=== PATIENT | female | born 1945 | race Caucasian/White ===

== ENCOUNTER 2020-06-15 11:11 | Outpatient (CLI) | payer MEDICARE, SELFPAY ==
--- NOTE | 2020-06-15 11:15 | MM_ITS ---
WS: [id number] Exam: [place] [id number] Date/Time of Exam: 06/15/2020 11:19 AM Reason For Exam: SCREENING VIEWS: MLO and CC views both breasts. Comparison made with prior exam of 03/08/2017. Findings: There was no sign of mass, architectural distortion or suspicious calcification in either breast. Sc attered fibroglandular densities MM/[place] [id number] Impression: BI-RADS: 2-Benign FOLLOW-UP: 1 Year Follow-up This mammogram was also analyzed by the Computer Aided Detection System [employer] M[employer] Installer.
== END 2020-06-15 11:12 | disposition home or self-care (01) ==
LOC: RADSHAW 11:13
PROVIDERS: Family Provider Family Medicine; PCP Family Medicine; Visit Provider Family Medicine
DX: Z12.31 Encounter for screening mammogram for malignant neoplasm of breast (principal)
CPT/HCPCS: 77067

== ENCOUNTER 2020-08-12 13:21 | Outpatient (CLI) | payer MEDICARE, SELFPAY ==
--- NOTE | 2020-08-12 13:29 | XR_ITS ---
WS: [id number] DEXA (DUAL ENERGY X-RAY ABSORPTIOMETRY) Bone mineral density was performed using a [employer] machine. HISTORY: POST MENOPAUSAL COMPARISON: 08/04/2018 Lumbar spine BMD (L1-L4): 1.153 g/cm2 T score: -0.2 Z score: 0.3 Total hip BMD: Left: 1.004 g/cm2. T score: 0.0 Z score: 0.8 Right: 1.003 g/cm2. T score: 0.0 Z score: 0.8 10 year probability of a major osteoporotic fracture is 18%. Compared to the prior study from 08/04/2018. Lumbar spine bone mineral density has increased by 3%. Bilateral hips bone mineral density has decreased by 0.6%. XR/XR DEXA axial skeleton* [id number] IMPRESSION: NORMAL BONE MINERAL DENSITY based upon the WHO classification for females. Sign ificant increase in bone mineral density in the lumbar spine since the prior .
== END 2020-08-12 13:22 | disposition home or self-care (01) ==
LOC: RADWPI 13:29
PROVIDERS: PCP Family Medicine; Visit Provider Family Medicine
DX: Z78.0 Asymptomatic menopausal state (principal)
CPT/HCPCS: 77080

== ENCOUNTER 2020-09-05 08:33 | Observation (INO) | payer MEDICARE, SELFPAY ==
[2020-09-05] VITALS (7 sets, daily range): BP systolic 101–124; BP diastolic 50–72; PULSE 75–85; RESP 16–19; TEMP 36.3–37.2; O2SAT 93–98; BMI 40.5
--- NOTE | 2020-09-05 08:56 | XR_ITS ---
WS: [id number] Exam: XR chest 1V portable [id number] Date/Time of Exam: 09/05/2020 8:57 AM Reason For Exam: weakness No priors. The lungs are fully expanded. No consolidating infiltrates or pleural effusion. Normal cardiomediasti nal structures for technique. Regional bony elements are intact. XR/XR chest 1V portable [id number] IMPRESSION: 1. No acute cardiopulmonary process.
--- NOTE | 2020-09-05 08:56 | W.ED.WEAKNES ---
Documented by User: LUIS A Newberry 09/05/20 11:11 HPI - Weakness General: Chief complaint: Weakness Stated complaint: weakness Time Seen by Provider: 09/05/20 08:45 Source: patient Mode of arrival: ambulatory Limitations: no limitations History of Present Illness: HPI Narrative: Patient is a 75-year-old female who presents to ED today with a main complaint of generalized weakness. Patient tells me she received the second COVID vaccine 6 days ago. She states the following day she developed a pruritic rash. She also began noticing low-grade fevers of 99.0. She states she had some nausea and felt a little short of breath. She has had 1-2 episodes of non-bloody emesis and reports her stools are looser than normal. Patient states since that time most of the rash has subsided although she has still noticed it to her bilateral lower extremities. She complains of some mild abdominal pain. She complains of mild intermittent chest pains. She states she does still feel short of breath. Her main complaint is feeling generally weak. PMH significant for HTN and hyperlipidemia. Current meds include Lisinopril, Atenolol, and Crestor. MD Complaint: generalized weakness Onset (ago): day(s) Duration: constant Location: generalized Migration: none Relieving factors: none Exacerbating factors: none Context: other (Second COVID vaccine) Associated symptoms: Reports chest pain, fever(s) (99.0), nausea and vomiting; Denies chills, confusion, melena, dysuria, headache(s) or syncope Review of Systems Const: Reports: fever(s) (99.0); Denies: chills, body aches, fatigue or malaise Eyes: Denies: change in vision, blurry vision or photophobia ENMT: Denies: throat pain, odynophagia, nasal discharge or nasal congestion Card: Reports: chest pain and dyspnea on exertion; Denies: palpitations, irregular heart rhythm, edema, swelling of feet/ankles, lightheadedness, syncope, pre-syncope, orthopnea, leg pain with exertion or acrocyanosis Resp: Reports: dyspnea; Denies: productive cough, non-productive cough, pain on inspiration, hemoptysis or chest congestion GI: Reports: abdominal pain, nausea, vomiting and diarrhea (loose stools); Denies: pain on defecation, hematochezia or melena : Denies: flank pain, difficulty voiding, dysuria, urinary frequency, urinary urgency or urinary hesitancy Musc: Denies: neck pain, back pain, extremity pain, extremity swelling, joint pain or joint swelling Skin/Breast: Reports: rash Neuro: Reports: weakness in extremities; Denies: headache(s), numbness in extremities, sensory changes, lack of coordination, frequent falls, dizziness or confusion PFSH ED PFSH: Social History (Updated 09/05/20 @ 08:47 by Joe Mcclure RN) Smoking and tobacco status: never smoked Alcohol intake: never Physical Exam Const: COMMON NORMALS: no acute distress, patient oriented x3, no limitations and alert GENERAL APPEARANCE: cooperative NUTRITIONAL APPEARANCE: obese ORIENTATION/CONSCIOUSNESS: Yes awake, Yes oriented to person, Yes oriented to place and Yes oriented to time HENMT: COMMON NORMALS: normocephalic and atraumatic HEAD & SCALP: normal to inspection, normocephalic and atraumatic Neck/C-Spine: COMMON NORMALS: full ROM, no lymphadenopathy and no meningeal signs CERVICAL SPINE: No cervical ROM normal, No pain with cervical ROM, No Cervical spine tenderness and No Paracervical muscle tenderness Chest: COMMONS NORMALS: normal inspection of the chest and normal palpation of entire chest wall Resp: COMMON NORMALS: normal respiratory effort and clear to auscultation bilaterally AUSCULTATION: clear to auscultation bilaterally Cardio: COMMON NORMALS: regular rate and regular rhythm RATE: regular rate RHYTHM: regular rhythm GI: COMMON NORMALS: Normal to inspection, nondistended, normoactive bowel sounds present, Soft to palpation, No hepatosplenomegaly present and no masses PALPATION: Yes Soft to palpation, Yes Tenderness to palpation present (GI) (epigastric ) and Yes No hepatosplenomegaly present : COMMON NORMALS: Yes no CVA tenderness BLADDER/KIDNEY EXAM: Yes no CVA tenderness Back/Pelvis: COMMON NORMALS: no CVA tenderness, thoracic and lumbar spine normal to inspection, no thoracic nor lumbar tenderness and thoraco-lumbar ROM normal Extremity: COMMON NORMALS: full ROM, capillary refill normal, no joint enlargement, no clubbing, cyanosis or edema, no calf tenderness and no pedal edema NARRATIVE EXTREMITY EXAM: patchy erythematous rash noted to bilateral lower legs Neuro: RAZ COMA SCALE: document GCS findings Raz coma scale eye opening: Spontaneous Raz coma scale verbal response: Orientated [place] coma scale motor response: Obey commands Raz coma scale total score: 15 COMMON NORMALS: patient oriented x3, CN's II-XII intact bilaterally, moves all extremities, no focal motor deficits and no sensory deficits noted SENSORIUM/ORIENTATION: Yes alert, Yes oriented to person, Yes oriented to place and Yes oriented to time MENINGEAL SIGNS: Yes no meningeal signs MOTOR EXAM: 5/5 motor strength present throughout Skin: RASHES: rashes noted Course Vital Signs: Vital signs: Vital Signs Temperature 97.3 F L 09/05/20 08:42 Pulse Rate 85 09/05/20 08:42 Respiratory Rate 16 09/05/20 08:42 Blood Pressure 108/56 09/05/20 08:42 Pulse Oximetry 95 09/05/20 08:42 MDM - Weakness MDM Narrative: Medical decision making narrative: Patient is noted to be in acute renal failure. Previous labs from [facility] were obtained. BUN/Cr on 07/28/2020 were 14/1.0. These labs on 01/19/2020 were again 14/1.0. I have spoken to Dr. Wood who saw/evaluated patient and has spoken to Dr. Aviles for admission. Lab Data: Labs: Lab Results 09/05/20 09/05/20 09/05/20 Range/Units 09:11 09:11 09:11 WBC 7.7 (4.0-10.0) 10^3/ uL RBC 4.34 (4.1-5.3) 10^6/u L Hgb 11.6 (11.5-15.3) g/dL Hct 37.3 (37.0-47.0) % MCV 85.9 (81-99) fL MCH 26.7 L (28.0-34.0) pg MCHC 31.1 (30.0-36.0) g/dL RDW 15.7 H (12.1-15.1) % Plt Count 174 (130-400) 10^3/c mm MPV 10.1 (7.4-10.4) fL Neut % (Auto) 71.7 % Lymph % (Auto) 14.1 % Coos % (Auto) 5.0 % Eos % (Auto) 6.3 % Baso % (Auto) 0.6 % Neut # (Auto) 5.54 (1.8-7.7) 10^3/u L Lymph # (Auto) 1.1 (0.8-4.8) 10^3/u L [place]os # (Auto) 0.4 (0.2-0.9) 10^3/u L Eos # (Auto) 0.5 (0.0-0.8) 10^3/u L Baso # (Auto) 0.1 (0.0-0.1) 10^3/u L Nucleated RBC % (a uto) 0 % Nucleated RBCs # 0.0 /100WBC Sodium 139 (136-145) mmol/L Potassium 3.9 (3.5-5.1) mmol/L Chloride 103 (98-107) mmol/L Carbon Dioxide 20 L (22-29) mmol/L Anion Gap 19.9 H (5-19) BUN 83 H* (8-23) mg/dL Creatinine 2.8 H (0.5-0.9) mg/dL GFR Calculation Not Reportable Glucose 126 H (65-115) mg/dL POC Glucose (70-110) mg/dL Calculated Osmolal ity 315 H (285-295) mOsm/k g Lactic Acid 2.1 (0.5-2.2) mmol/L Calcium 8.0 L (8.5-10.5) mg/dL Magnesium (1.7-2.3) mg/dL Total Bilirubin 0.4 (0.15-1.2) mg/dL AST 16 (0-32) U/L ALT 13 (0-33) U/L Alkaline Phosphata se 63 (35-105) IU/L Troponin T Baselin e (0-10) ng/L Total Protein 5.5 L (6.6-8.7) g/dL Albumin 2.8 L (3.5-5.2) g/dL Globulin 2.7 (1.3-4.6) g/dL Urine Color (Yellow) Urine Appearance (CLEAR) Urine pH (5-7) Ur Specific Gravit y (1.005-1.030) Urine Protein (Negative) Urine Glucose (UA) (Normal) Urine Ketones (Negative) Urine Blood (Negative) Urine Nitrate (Negative) Urine Bilirubin (Negative) Urine Urobilinogen (Negative) mg/dL Ur Leukocyte Luz ase (Negative) 09/05/20 09/05/20 09/05/20 Range/Units 09:11 09:11 09:50 WBC (4.0-10.0) 10^3/ uL RBC (4.1-5.3) 10^6/u L Hgb (11.5-15.3) g/dL Hct (37.0-47.0) % MCV (81-99) fL MCH (28.0-34.0) pg MCHC (30.0-36.0) g/dL RDW (12.1-15.1) % Plt Count (130-400) 10^3/c mm MPV (7.4-10.4) fL Neut % (Auto) % Lymph % (Auto) % Coos % (Auto) % Eos % (Auto) % Baso % (Auto) % Neut # (Auto) (1.8-7.7) 10^3/u L Lymph # (Auto) (0.8-4.8) 10^3/u L Coos # (Auto) (0.2-0.9) 10^3/u L Eos # (Auto) (0.0-0.8) 10^3/u L Baso # (Auto) (0.0-0.1) 10^3/u L Nucleated RBC % (a uto) % Nucleated RBCs # /100WBC Sodium (136-145) mmol/L Potassium (3.5-5.1) mmol/L Chloride (98-107) mmol/L Carbon Dioxide (22-29) mmol/L Anion Gap (5-19) BUN (8-23) mg/dL Creatinine (0.5-0.9) mg/dL GFR Calculation Glucose (65-115) mg/dL POC Glucose 112 H (70-110) mg/dL Calculated Osmolal ity (285-295) mOsm/k g Lactic Acid (0.5-2.2) mmol/L Calcium (8.5-10.5) mg/dL Magnesium 2.2 (1.7-2.3) mg/dL Total Bilirubin (0.15-1.2) mg/dL AST (0-32) U/L ALT (0-33) U/L Alkaline Phosphata se (35-105) IU/L Troponin T Baselin e 55 H (0-10) ng/L Total Protein (6.6-8.7) g/dL Albumin (3.5-5.2) g/dL Globulin (1.3-4.6) g/dL Urine Color (Yellow) Urine Appearance (CLEAR) Urine pH (5-7) Ur Specific Gravit y (1.005-1.030) Urine Protein (Negative) Urine Glucose (UA) (Normal) Urine Ketones (Negative) Urine Blood (Negative) Urine Nitrate (Negative) Urine Bilirubin (Negative) Urine Urobilinogen (Negative) mg/dL Ur Leukocyte Luz ase (Negative) 09/05/20 Range/Units 10:37 WBC (4.0-10.0) 10^3/ uL RBC (4.1-5.3) 10^6/u L Hgb (11.5-15.3) g/dL Hct (37.0-47.0) % MCV (81-99) fL MCH (28.0-34.0) pg MCHC (30.0-36.0) g/dL RDW (12.1-15.1) % Plt Count (130-400) 10^3/c mm MPV (7.4-10.4) fL Neut % (Auto) % Lymph % (Auto) % Coos % (Auto) % Eos % (Auto) % Baso % (Auto) % Neut # (Auto) (1.8-7.7) 10^3/u L Lymph # (Auto) (0.8-4.8) 10^3/u L Coos # (Auto) (0.2-0.9) 10^3/u L Eos # (Auto) (0.0-0.8) 10^3/u L Baso # (Auto) (0.0-0.1) 10^3/u L Nucleated RBC % (a uto) % Nucleated RBCs # /100WBC Sodium (136-145) mmol/L Potassium (3.5-5.1) mmol/L Chloride (98-107) mmol/L Carbon Dioxide (22-29) mmol/L Anion Gap (5-19) BUN (8-23) mg/dL Creatinine (0.5-0.9) mg/dL GFR Calculation Glucose (65-115) mg/dL POC Glucose (70-110) mg/dL Calculated Osmolal ity (285-295) mOsm/k g Lactic Acid (0.5-2.2) mmol/L Calcium (8.5-10.5) mg/dL Magnesium (1.7-2.3) mg/dL Total Bilirubin (0.15-1.2) mg/dL AST (0-32) U/L ALT (0-33) U/L Alkaline Phosphata se (35-105) IU/L Troponin T Baselin e (0-10) ng/L Total Protein (6.6-8.7) g/dL Albumin (3.5-5.2) g/dL Globulin (1.3-4.6) g/dL Urine Color Dark yellow (Yellow) Urine Appearance Clear (CLEAR) Urine pH 5 (5-7) Ur Specific Gravit y 1.020 (1.005-1.030) Urine Protein Neg (Negative) Urine Glucose (UA) Norm (Normal) Urine Ketones 1+ H (Negative) Urine Blood Neg (Negative) Urine Nitrate Negative (Negative) Urine Bilirubin 1+ H (Negative) Urine Urobilinogen 1 H (Negative) mg/dL Ur Leukocyte Luz ase Negative (Negative) Imaging Data^: CXR: Radiologist's impression: [address] [address] XRay Report Signed Patient: Christopher Castellon #: [id number] : 1945cct#:[id number] Age/Sex: 75 / FADM Date: 09/05/20 Loc: ERRoom/Bed: Attending Dr: Ordering Provider/Ordering MD: Lissett Ornelas Date of Service: 09/05/20 Procedure(s): XR chest 1V portable [id number] Accession Number(s): [id number] Report Number: [id number] WS: [id number] Exam: XR chest 1V portable [id number] Date/Time of Exam: 09/05/2020 8:57 AM Reason For Exam: weakness No priors. The lungs are fully expanded. No consolidating infiltrates or pleural effusion. Normal cardiomediastinal structures for technique. Regional bony elements are intact. XR/XR chest 1V portable [id number] IMPRESSION: 1. No acute cardiopulmonary process. Dictated By:Ravin Tesfaye DO Signed By:Rolando Luther Date/Time:09/05/20927 DD/ 6 EKG Data^: EKG 1: EKG interpretation date: 09/05/20 EKG interpretation time: 09:06 Interpretation: Sinus rhythm Rate [address] elevation or depression changes noted EKG 2: EKG interpretation date: 09/05/20 EKG interpretation time: 10:53 Interpretation: Sinus rhythm Rate [address] elevation or depression changes noted No changes noted from EKG performed earlier on same visit Discharge Plan Discharge Patient Disposition: Placed in Observation Clinical Impression: Acute renal failure Qualifiers: Acute renal failure type: unspecified Qualified Code(s): N17.9 - Acute kidney failure, unspecified Coding Level of Care Code ED Director Institution for [facility]g Fwd Exam Comprehensive Documented by User: Manjinder Wood MD 09/05/20 11:37 HPI - Weakness General: Chief complaint: Weakness Stated complaint: weakness Time Seen by Provider: 09/05/20 08:45 PFS ED PFSH: Social History (Updated 09/05/20 @ 08:47 by Joe Mcclure RN) Smoking and tobacco status: never smoked Alcohol intake: never Course Vital Signs: Vital signs: Vital Signs Temperature 97.3 F L 09/05/20 08:42 Pulse Rate 85 09/05/20 08:42 Respiratory Rate 16 09/05/20 08:42 Blood Pressure 108/56 09/05/20 08:42 Pulse Oximetry 95 09/05/20 08:42 MDM - Weakness MDM Narrative: Medical decision making narrative: Nina: Patient reviewed the labs and agree with the plan of care. Admit to Dr. Aviles observation. Lab Data: Labs: Lab Results 09/05/20 09/05/20 09/05/20 Range/Units 09:11 09:11 09:11 WBC 7.7 (4.0-10.0) 10^3/ uL RBC 4.34 (4.1-5.3) 10^6/u L Hgb 11.6 (11.5-15.3) g/dL Hct 37.3 (37.0-47.0) % MCV 85.9 (81-99) fL MCH 26.7 L (28.0-34.0) pg MCHC 31.1 (30.0-36.0) g/dL RDW 15.7 H (12.1-15.1) % Plt Count 174 (130-400) 10^3/c mm MPV 10.1 (7.4-10.4) fL Neut % (Auto) 71.7 % Lymph % (Auto) 14.1 % Coos % (Auto) 5.0 % Eos % (Auto) 6.3 % Baso % (Auto) 0.6 % Neut # (Auto) 5.54 (1.8-7.7) 10^3/u L Lymph # (Auto) 1.1 (0.8-4.8) 10^3/u L [place]os # (Auto) 0.4 (0.2-0.9) 10^3/u L Eos # (Auto) 0.5 (0.0-0.8) 10^3/u L Baso # (Auto) 0.1 (0.0-0.1) 10^3/u L Nucleated RBC % (a uto) 0 % Nucleated RBCs # 0.0 /100WBC Sodium 139 (136-145) mmol/L Potassium 3.9 (3.5-5.1) mmol/L Chloride 103 (98-107) mmol/L Carbon Dioxide 20 L (22-29) mmol/L Anion Gap 19.9 H (5-19) BUN 83 H* (8-23) mg/dL Creatinine 2.8 H (0.5-0.9) mg/dL GFR Calculation Not Reportable Glucose 126 H (65-115) mg/dL POC Glucose (70-110) mg/dL Calculated Osmolal ity 315 H (285-295) mOsm/k g Lactic Acid 2.1 (0.5-2.2) mmol/L Calcium 8.0 L (8.5-10.5) mg/dL Magnesium (1.7-2.3) mg/dL Total Bilirubin 0.4 (0.15-1.2) mg/dL AST 16 (0-32) U/L ALT 13 (0-33) U/L Alkaline Phosphata se 63 (35-105) IU/L Troponin T Baselin e (0-10) ng/L Total Protein 5.5 L (6.6-8.7) g/dL Albumin 2.8 L (3.5-5.2) g/dL Globulin 2.7 (1.3-4.6) g/dL Urine Color (Yellow) Urine Appearance (CLEAR) Urine pH (5-7) Ur Specific Gravit y (1.005-1.030) Urine Protein (Negative) Urine Glucose (UA) (Normal) Urine Ketones (Negative) Urine Blood (Negative) Urine Nitrate (Negative) Urine Bilirubin (Negative) Urine Urobilinogen (Negative) mg/dL Ur Leukocyte Luz ase (Negative) 09/05/20 09/05/20 09/05/20 Range/Units 09:11 09:11 09:50 WBC (4.0-10.0) 10^3/ uL RBC (4.1-5.3) 10^6/u L Hgb (11.5-15.3) g/dL Hct (37.0-47.0) % MCV (81-99) fL MCH (28.0-34.0) pg MCHC (30.0-36.0) g/dL RDW (12.1-15.1) % Plt Count (130-400) 10^3/c mm MPV (7.4-10.4) fL Neut % (Auto) % Lymph % (Auto) % [place]os % (Auto) % Eos % (Auto) % Baso % (Auto) % Neut # (Auto) (1.8-7.7) 10^3/u L Lymph # (Auto) (0.8-4.8) 10^3/u L [place] # (Auto) (0.2-0.9) 10^3/u L Eos # (Auto) (0.0-0.8) 10^3/u L Baso # (Auto) (0.0-0.1) 10^3/u L Nucleated RBC % (a uto) % Nucleated RBCs # /100WBC Sodium (136-145) mmol/L Potassium (3.5-5.1) mmol/L Chloride (98-107) mmol/L Carbon Dioxide (22-29) mmol/L Anion Gap (5-19) BUN (8-23) mg/dL Creatinine (0.5-0.9) mg/dL GFR Calculation Glucose (65-115) mg/dL POC Glucose 112 H (70-110) mg/dL Calculated Osmolal ity (285-295) mOsm/k g Lactic Acid (0.5-2.2) mmol/L Calcium (8.5-10.5) mg/dL Magnesium 2.2 (1.7-2.3) mg/dL Total Bilirubin (0.15-1.2) mg/dL AST (0-32) U/L ALT (0-33) U/L Alkaline Phosphata se (35-105) IU/L Troponin T Baselin e 55 H (0-10) ng/L Total Protein (6.6-8.7) g/dL Albumin (3.5-5.2) g/dL Globulin (1.3-4.6) g/dL Urine Color (Yellow) Urine Appearance (CLEAR) Urine pH (5-7) Ur Specific Gravit y (1.005-1.030) Urine Protein (Negative) Urine Glucose (UA) (Normal) Urine Ketones (Negative) Urine Blood (Negative) Urine Nitrate (Negative) Urine Bilirubin (Negative) Urine Urobilinogen (Negative) mg/dL Ur Leukocyte Luz ase (Negative) 09/05/20 Range/Units 10:37 WBC (4.0-10.0) 10^3/ uL RBC (4.1-5.3) 10^6/u L Hgb (11.5-15.3) g/dL Hct (37.0-47.0) % MCV (81-99) fL MCH (28.0-34.0) pg MCHC (30.0-36.0) g/dL RDW (12.1-15.1) % Plt Count (130-400) 10^3/c mm MPV (7.4-10.4) fL Neut % (Auto) % Lymph % (Auto) % Coos % (Auto) % Eos % (Auto) % Baso % (Auto) % Neut # (Auto) (1.8-7.7) 10^3/u L Lymph # (Auto) (0.8-4.8) 10^3/u L Coos # (Auto) (0.2-0.9) 10^3/u L Eos # (Auto) (0.0-0.8) 10^3/u L Baso # (Auto) (0.0-0.1) 10^3/u L Nucleated RBC % (a uto) % Nucleated RBCs # /100WBC Sodium (136-145) mmol/L Potassium (3.5-5.1) mmol/L Chloride (98-107) mmol/L Carbon Dioxide (22-29) mmol/L Anion Gap (5-19) BUN (8-23) mg/dL Creatinine (0.5-0.9) mg/dL GFR Calculation Glucose (65-115) mg/dL POC Glucose (70-110) mg/dL Calculated Osmolal ity (285-295) mOsm/k g Lactic Acid (0.5-2.2) mmol/L Calcium (8.5-10.5) mg/dL Magnesium (1.7-2.3) mg/dL Total Bilirubin (0.15-1.2) mg/dL AST (0-32) U/L ALT (0-33) U/L Alkaline Phosphata se (35-105) IU/L Troponin T Baselin e (0-10) ng/L Total Protein (6.6-8.7) g/dL Albumin (3.5-5.2) g/dL Globulin (1.3-4.6) g/dL Urine Color Dark yellow (Yellow) Urine Appearance Clear (CLEAR) Urine pH 5 (5-7) Ur Specific Gravit y 1.020 (1.005-1.030) Urine Protein Neg (Negative) Urine Glucose (UA) Norm (Normal) Urine Ketones 1+ H (Negative) Urine Blood Neg (Negative) Urine Nitrate Negative (Negative) Urine Bilirubin 1+ H (Negative) Urine Urobilinogen 1 H (Negative) mg/dL Ur Leukocyte Luz ase Negative (Negative) Discharge Plan Discharge Patient Disposition: Placed in Observation Clinical Impression: Acute renal failure Qualifiers: Acute renal failure type: unspecified Qualified Code(s): N17.9 - Acute kidney failure, unspecified Coding Level of Care Code ED Director Institution for [facility] Fwd Exam Comprehensive
--- NOTE | 2020-09-05 08:57 | ECG_ITS ---
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 Measurements Intervals [place] Rate: 77 P: 57 [place]: 139 QRS: 5 QRSD: 98 T: 0 QT: 393 QTc: 447 Interpretive Statements SINUS RHYTHM LOW QRS VOLTAGE IN PRECORDIAL LEADS [QRS DEFLECTION < 1.0 mV IN CHEST LEADS] No previous ECG available for comparison Electronically Signed On 09-05-2020 12:55:11 CDT by Alanis Mullen M.D. [id number]
[2020-09-05 09:34] LABS: Basophils # 0.1 10^3/uL (0.0-0.1); Basophils % 0.6 %; Eosinophils # 0.5 10^3/uL (0.0-0.8); Eosinophils % 6.3 %; Hematocrit 37.3 % (37.0-47.0); Hemoglobin 11.6 g/dL (11.5-15.3); Lymphocytes # 1.1 10^3/uL (0.8-4.8); Lymphocytes % 14.1 %; Mean Corpuscular HGB Conc 31.1 g/dL (30.0-36.0); Mean Corpuscular Hemoglobin 26.7 pg (28.0-34.0); Mean Corpuscular Volume 85.9 fL (81-99); Mean Platelet Volume 10.1 fL (7.4-10.4); Monocytes # 0.4 10^3/uL (0.2-0.9); Neutrophils # 5.54 10^3/uL (1.8-7.7); Neutrophils % 71.7 %; Nucleated Red Blood Cells % 0 %; Platelet Count 174 10^3/cmm (130-400); Red Blood Count 4.34 10^6/uL (4.1-5.3); Red Cell Distribution Width 15.7 % (12.1-15.1); White Blood Count 7.7 10^3/uL (4.0-10.0)
[2020-09-05 09:47] LABS: Alanine Aminotransferase 13 U/L (0-33); Albumin Level 2.8 g/dL (3.5-5.2); Alkaline Phosphatase 63 IU/L (35-105); Anion Gap 19.9 (5-19); Aspartate Amino Transferase 16 U/L (0-32); Carbon Dioxide 20 mmol/L (22-29); Chloride 103 mmol/L (98-107); Globulin 2.7 g/dL (1.3-4.6); Glucose 126 mg/dL (65-115); Osmolality Calculated 315 mOsm/kg (285-295); Potassium 3.9 mmol/L (3.5-5.1); Sodium 139 mmol/L (136-145); Total Bilirubin 0.4 mg/dL (0.15-1.2); Total Protein 5.5 g/dL (6.6-8.7); Troponin(5th) Baseline 55 ng/L (0-10)
[2020-09-05 09:48] LABS: Lactic Sepsis W/Reflex 2.1 mmol/L (0.5-2.2)
[2020-09-05 09:49] LABS: Blood Urea Nitrogen 83 mg/dL (8-23)
[2020-09-05 09:52] LABS: Glucose Point of Care 112 mg/dL (70-110)
[2020-09-05] MEDS: sodium chloride 0.9% 1,000 ML 999 ML IV (10:09)
[2020-09-05 10:46] LABS: Add Urine Microscopic? NO
[2020-09-05 10:49] LABS: Urine Color Dark Yellow (Yellow)
[2020-09-05 10:50] LABS: Bilirubin Urine 1+ (Negative); Blood Urine Neg (Negative); Glucose Urine UA Norm (Normal); Ketones Urine 1+ (Negative); Leukocyte Esterase Urine Negative (Negative); Nitrate Urine Negative (Negative); Protein Urine Neg (Negative); Urine Appearance Clear (CLEAR); Urobilinogen Urine 1 mg/dL (Negative); pH Urine 5 (5-7)
[2020-09-05 10:52] LABS: Magnesium 2.2 mg/dL (1.7-2.3)
--- NOTE | 2020-09-05 10:57 | ECG_ITS ---
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 Measurements Intervals [place] Rate: 73 P: 61 VT: 140 QRS: 33 QRSD: 94 T: 22 QT: 399 QTc: 441 Interpretive Statements SINUS RHYTHM Compared to ECG 09/05/2020 09:06:15 No significant changes Electronically Signed On 09-05-2020 13:01:04 CDT by Alanis Mullen M.D. [id number]
[2020-09-05 11:11] LABS: Reflex Lactate Order REFLEX LACTIC ORDERD
--- NOTE | 2020-09-05 11:47 | US_ITS ---
WS: [id number] RENAL ULTRASOUND HISTORY: renal failure COMPARISON: None available. TECHNIQUE: 2-D and color Doppler imaging of the kidney submitted. Right kidney: 13.0 cm x 5.5 cm x 3.8 cm. Kidney is slightly enlarged. Increased echogenicity with increased fat in the renal sinus. No obstruc tion or solid mass. No cortical thinning. Left kidney: 11.9 cm x 6.8 cm x 3.7 cm. Normal size kidney. Cyst from the lower pole measures 2.9 x 3.2 x 2.2 cm. No obstruction. Increased e chogenicity and increased fat in the sinus. Aorta: Normal. Urinary Bladder: Normal distention. US/US renal BI* [id number] IMPRESSION: 1. No renal obstruction or solid mass. 2. Mild chronic medical renal disease. 3. Simple cyst lower pole LEFT kidney.
[2020-09-05 12:20] LABS: Lactic Acid level (Lactate) 1.5 mmol/L (0.5-2.2)
[2020-09-05 12:29] LABS: Creatine Phosphokinase 35 U/L (26-192)
[2020-09-05 12:31] LABS: Troponin 5 2HR 48.56 ng/L (0-10)
[2020-09-05 12:35] LABS: Troponin 5 2HR Delta -6.44 ABS# (0-10)
--- NOTE | 2020-09-05 12:53 | PM.HP ---
Providers/Chief Complaint Primary Care Provider: Demarcus Austin MD Chief Complaint: POSS REACTION TO 2ND COVID VACC History of Present Illness Christopher Castellon is a 75 year old female who presents to the hospital with a myriad of complaints. She states she is dizzy, tired, short of breath with exertion. She has felt poorly at least since her second Covid shot 6 days ago but possibly even prior to that. She has had a rash recently predating a Covid shot. She states it is now fading. She denies any fevers since the evening of her last Covid shot which she had attributed to this. She has had some back pain for which she has been taking some Aleve. She continues to take her regular medicines. She has not had any vomiting or diarrhea. No chest pain. Some complaints of dry mouth as well as anorexia. Review of Systems General: Reports: 10 or more systems reviewed and unremarkable except in HPI and below Const: Reports: fever(s), body aches and fatigue Eyes: Denies: change in vision ENMT: Reports: throat pain and dry mouth Card: Denies: chest pain Resp: Reports: dyspnea GI: Denies: abdominal pain, nausea or vomiting : Denies: flank pain Musc: Reports: back pain; Denies: neck pain Skin/Breast: Reports: rash Neuro: Denies: headache(s) Psych: Denies: anxiety Endo: Denies: polyuria Demarco/Lymph: Denies: easy bruising All/Imm: Reports: urticaria (Previous history 10 to 14 days ago now fading) Medications/Allergies Home Medications Medication Instructions Recorded Confirmed Last Taken Type atenolol-chlorthalidone 1 tab PO DAILY@09/05/20 09/05/20 09/04/20 History coenzyme Q10 200 mg PO DAILY@0900 09/05/20 09/05/20 09/04/20 History losartan 100 mg PO DAILY@09/05/20 09/05/20 09/05/20 History rosuvastatin See Rx Instructions .ROUTE .COMPLEX 09/05/20 09/05/20 09/02/20 History sodium chloride [Riccardo 128] 1 drp OPHTHALMIC (EYE) TID 09/05/20 09/05/20 Unknown History Allergies Allergy/AdvReac Type Severity Reaction Status Date / Time sulfamethoxazole Allergy ALGY-Rash Verified 09/05/20 08:46 [From Bactrim] trimethoprim [From Bactrim] Allergy ALGY-Rash Verified 09/05/20 08:46 PFSH Acute PFSH: Medical History (Updated 09/05/20 @ 13:01 by Terry Aviles MD) Hyperlipidemia Hypertension Surgical History (Updated 09/05/20 @ 12:56 by Terry Aviles MD) H/O right knee surgery History of cataract surgery History of corneal transplant History of shoulder surgery Family History (Updated 09/05/20 @ 12:56 by Terry Aviles MD) Other Cancer Dementia Hypertension Stroke Social History (Updated 09/05/20 @ 08:47 by Joe Mcclure RN) Smoking and tobacco status: never smoked Alcohol intake: never Vitals/I&O/Wt Last Vital Signs Temp 97.3 F L 09/05/20 08:42 Pulse 85 09/05/20 08:42 Resp 16 09/05/20 08:42 BP 108/56 09/05/20 08:42 Pulse Ox 95 09/05/20 08:42 Weight last 48 hrs Weight 108.862 kg Physical Exam Narrative: EXAM NARRATIVE: General exam is a white female, in no obvious distress HEENT: Pupils equally round. Oropharynx somewhat dry but no exudate Neck is supple no lymphadenopathy or thyromegaly Cardiovascular regular in rhythm without murmur. No S3 or S4 Lungs clear no wheezing or crackles Abdomen is soft obese nontender with positive bowel sounds. No obvious organomegaly was deferred Extremities show no cyanosis clubbing. Trace edema is present. Faint evanescent erythematous rash appears on the shins, nonpalpable. No rash on palms or soles. Neuro no obvious focal deficits Data : 09/05/20 09:11 09/05/20 09:11 Other data: LFTs normal Initial troponin 55 with repeat of 48 Urinalysis essentially negative Chest x-ray no infiltrate EKG was normal sinus rhythm, normal axis, normal EKG A&P Assessment and plan (1) Acute renal failure: Multifactorial. Patient appears to be somewhat dehydrated. Compounded this is use of anti-inflammatories in the form of Aleve for back pain twice daily, ARB, diuretic. Hydrate Check renal ultrasound to rule out obstruction. This has been done and no evidence of obstruction Urinalysis was checked and no evidence of infection Reassess renal function tomorrow in the form of a BMP Avoid renal toxic medications as well as anti-inflammatories. Status: Acute Qualifiers: Acute renal failure type: unspecified Qualified Code(s): N17.9 - Acute kidney failure, unspecified (2) Elevated troponin: Decreasing. No evidence of myocardial injury. Likely elevated secondary to acute kidney injury. Status: Acute Additional A&P Information Rash. Fading. No evidence of hives or allergy currently. Hypertension. Hold ARB/diuretic. Blood pressure is borderline low. Reassess in the morning. History of hyperlipidemia. Hold statin for now until renal function has recovered Full code Heparin for DVT prophylaxis Attestations Medical Necessity Statement*: Will need less than 2 midnight stay for evaluation and treatment of acute kidney injury. Time Spent in Patient Care: Greater than 35 minutes Coding Level of Care Code Acute Lens Grinder Apprentice for Chata Martins Diagnoses Acute renal failure N17.9 Acute renal failure type: unspecified Elevated troponin R77.8
[2020-09-05] MEDS: heparin 5,000 unit/mL INJ 1 mL 5000 UNIT SUBCUT (13:43)
[2020-09-05] MEDS: sodium chloride 0.9% 1,000 ML 125 ML IV ×2 (13:43→22:19)
[2020-09-05 15:46] LABS: Troponin 5 6HR 45.85 ng/L (0-10)
[2020-09-05 15:49] LABS: Troponin 5 6HR Delta -9.15 ng/L (0-12)
[2020-09-05] MEDS: oxyCODONE 5 mg IR Tab/Cap PO (16:04)
[2020-09-05] MEDS: acetaminophen 325 mg Tablet 650 MG PO (23:39)
[2020-09-06] VITALS: BP 99/63; PULSE 84; RESP 17; TEMP 37.3; O2SAT 92
[2020-09-06] MEDS: heparin 5,000 unit/mL INJ 1 mL 5000 UNIT SUBCUT (00:45)
[2020-09-06 00:48] VITALS: RESP 17
[2020-09-06] MEDS: oxyCODONE 5 mg IR Tab/Cap PO ×2 (00:48→06:48)
[2020-09-06 04:00] VITALS: BP 116/66; PULSE 83; RESP 17; TEMP 36.2; O2SAT 91
[2020-09-06] MEDS: sodium chloride 0.9% 1,000 ML 125 ML IV (06:01)
[2020-09-06 06:11] LABS: Basophils % 0.4 %; Nucleated Red Blood Cells % 0 %
[2020-09-06 06:20] LABS: Eosinophils # 0.4 10^3/uL (0.0-0.8); Hematocrit 32.5 % (37.0-47.0); Lymphocytes # 2.1 10^3/uL (0.8-4.8); Lymphocytes % 29.9 %; Mean Corpuscular HGB Conc 30.8 g/dL (30.0-36.0); Mean Corpuscular Hemoglobin 26.8 pg (28.0-34.0); Mean Corpuscular Volume 87.1 fL (81-99); Mean Platelet Volume 9.8 fL (7.4-10.4); Monocytes # 0.5 10^3/uL (0.2-0.9); Neutrophils # 3.85 10^3/uL (1.8-7.7); Platelet Count 154 10^3/cmm (130-400); Red Blood Count 3.73 10^6/uL (4.1-5.3); Red Cell Distribution Width 15.8 % (12.1-15.1)
[2020-09-06 06:28] LABS: Blood Urea Nitrogen 61 mg/dL (8-23); Calcium 7.3 mg/dL (8.5-10.5); Carbon Dioxide 21 mmol/L (22-29); Chloride 109 mmol/L (98-107); Glucose 98 mg/dL (65-115); Osmolality Calculated 309 mOsm/kg (285-295); Sodium 141 mmol/L (136-145)
[2020-09-06 06:48] VITALS: RESP 16
[2020-09-06 07:02] LABS: Slide Review Slide Review Perform
[2020-09-06 08:00] VITALS: BP 136/79; PULSE 80; RESP 18; TEMP 36.6; O2SAT 92
--- NOTE | 2020-09-06 09:47 | PM.DCS ---
Discharge Providers Date of Admission: 09/05/20 11:09 Date of Discharge: September 06, 2020 Attending Provider at Admission: Terry Aviles MD Attending Provider at Discharge: Terry Aviles MD Primary Care Provider: Demarcus Austin MD Diagnoses at Discharge Discharge Diagnosis (1) Acute renal failure: Status: Acute Qualifiers: Acute renal failure type: unspecified Qualified Code(s): N17.9 - Acute kidney failure, unspecified (2) Elevated troponin: Status: Acute Reason for Visit Reason for Visit: POSS REACTION TO 2ND COVID VACC Hospital Course Hospital Course Christopher is a 75-year-old white female who presented to the hospital September 05 with generalized weakness. 6 days prior she had had a Covid vaccine. She had had a rash previously. She had not been drinking fluids quite as well as normal. She had continued to take her regular medicine. She had been taking Aleve as well for some back pain. On arrival to the emergency department she was found to be in acute kidney injury. Troponin was elevated but with decreasing delta consistent with elevation secondary to her renal failure. She did not have any chest discomfort or EKG findings at my evaluation. Urinalysis did not reveal any obvious infection. She was placed under an observation category and rehydrated. All anti-inflammatories were held as well as her ARB and diuretic blood pressure medication. Blood pressure was somewhat soft initially. Renal ultrasound was performed which demonstrated no obstruction. By September 06 she was significantly improved. Blood pressure was 136/79. Creatinine had decreased to 1.8 from 2.8. It was thought she could be discharged home with continued holding of her blood pressure medication, close follow-up with her primary care provider in 2 to 3 days with BMP, and avoidance of all anti-inflammatories. She was encouraged to drink plenty of fluids. Physical Exam Narrative: EXAM NARRATIVE: General exam no apparent distress Cardiovascular regular rate and rhythm without murmur Lungs clear Abdomen is soft with positive bowel sounds Extremities no cyanosis clubbing or edema Discharge Data Data Completed and Pending: Completed Studies During Hospitalization Category Date Time Status XR chest 1V carolyn ble [id number] Urgent Exams 09/05/20 08:56 Completed US renal BI* [id number] Routine Ultrasound 09/05/20 11:47 Completed Labs from last 24 hours 09/06/20 09/06/20 09/05/20 05:01 05:01 15:05 WBC 7.0 RBC 3.73 L Hgb 10.0 L Hct 32.5 L MCV 87.1 MCH 26.8 L MCHC 30.8 RDW 15.8 H Plt Count 154 MPV 9.8 Neut % (Auto) 55.0 Lymph % (Auto) 29.9 [place] % (Auto) 7.0 Eos % (Auto) 6.0 Baso % (Auto) 0.4 Neut # (Auto) 3.85 Lymph # (Auto) 2.1 [place] # (Auto) 0.5 Eos # (Auto) 0.4 Baso # (Auto) 0.0 Nucleated RBC % (a uto) 0 Nucleated RBCs # 0.0 Sodium 141 Potassium 4.0 Chloride 109 H Carbon Dioxide 21 L Anion Gap 15.0 BUN 61 H Creatinine 1.8 H GFR Calculation Not Reportable Glucose 98 POC Glucose Calculated Osmolal ity 309 H Lactic Acid Lactic Acid (Sepsi s) Calcium 7.3 L Magnesium Total Bilirubin AST ALT Alkaline Phosphata se Creatine Kinase Troponin T Baselin e Troponin T 120 Min [place] Troponin T Troponin T Hi Sens 6Hr 45.85 H Troponin T Hi Sens 6Hr Delta -9.15 L Total Protein Albumin Globulin Urine Color Urine Appearance Urine pH Ur Specific Gravit y Urine Protein Urine Glucose (UA) Urine Ketones Urine Blood Urine Nitrate Urine Bilirubin Urine Urobilinogen Ur Leukocyte Luz ase 09/05/20 09/05/20 09/05/20 11:17 11:13 10:37 WBC RBC Hgb Hct MCV MCH MCHC RDW Plt Count MPV Neut % (Auto) Lymph % (Auto) [place] % (Auto) Eos % (Auto) Baso % (Auto) Neut # (Auto) Lymph # (Auto) [place] # (Auto) Eos # (Auto) Baso # (Auto) Nucleated RBC % (a uto) Nucleated RBCs # Sodium Potassium Chloride Carbon Dioxide Anion Gap BUN Creatinine GFR Calculation Glucose POC Glucose Calculated Osmolal ity Lactic Acid Lactic Acid (Sepsi s) 1.5 Calcium Magnesium Total Bilirubin AST ALT Alkaline Phosphata se Creatine Kinase Troponin T Baselin e Troponin T 120 Min [place] 48.56 H Delta Troponin T -6.44 L Troponin T Hi Sens 6Hr Troponin T Hi Sens 6Hr Delta Total Protein Albumin Globulin Urine Color Dark yellow Urine Appearance Clear Urine pH 5 Ur Specific Gravit y 1.020 Urine Protein Neg Urine Glucose (UA) Norm Urine Ketones 1+ H Urine Blood Neg Urine Nitrate Negative Urine Bilirubin 1+ H Urine Urobilinogen 1 H Ur Leukocyte Luz ase Negative 09/05/20 09/05/20 09/05/20 09:50 09:11 09:11 WBC RBC Hgb Hct MCV MCH MCHC RDW Plt Count MPV Neut % (Auto) Lymph % (Auto) [place] % (Auto) Eos % (Auto) Baso % (Auto) Neut # (Auto) Lymph # (Auto) [place] # (Auto) Eos # (Auto) Baso # (Auto) Nucleated RBC % (a uto) Nucleated RBCs # Sodium Potassium Chloride Carbon Dioxide Anion Gap BUN Creatinine GFR Calculation Glucose POC Glucose 112 H Calculated Osmolal ity Lactic Acid Lactic Acid (Sepsi s) Calcium Magnesium 2.2 Total Bilirubin AST ALT Alkaline Phosphata se Creatine Kinase 35 Troponin T Baselin e Troponin T 120 Min [place] Troponin T Troponin T Hi Sens 6Hr Troponin T Hi Sens 6Hr Delta Total Protein Albumin Globulin Urine Color Urine Appearance Urine pH Ur Specific Gravit y Urine Protein Urine Glucose (UA) Urine Ketones Urine Blood Urine Nitrate Urine Bilirubin Urine Urobilinogen Ur Leukocyte Luz ase 09/05/20 09/05/20 09/05/20 09:11 09:11 09:11 WBC RBC Hgb Hct MCV MCH MCHC RDW Plt Count MPV Neut % (Auto) Lymph % (Auto) [place] % (Auto) Eos % (Auto) Baso % (Auto) Neut # (Auto) Lymph # (Auto) [place] # (Auto) Eos # (Auto) Baso # (Auto) Nucleated RBC % (a uto) Nucleated RBCs # Sodium 139 Potassium 3.9 Chloride 103 Carbon Dioxide 20 L Anion Gap 19.9 H BUN 83 H* Creatinine 2.8 H GFR Calculation Not Reportable Glucose 126 H POC Glucose Calculated Osmolal ity 315 H Lactic Acid 2.1 Lactic Acid (Sepsi s) Calcium 8.0 L Magnesium Total Bilirubin 0.4 AST 16 ALT 13 Alkaline Phosphata se 63 Creatine Kinase Troponin T Baselin e 55 H Troponin T 120 Min [place] Delta Troponin T Troponin T Hi Sens 6Hr Troponin T Hi Sens 6Hr Delta Total Protein 5.5 L Albumin 2.8 L Globulin 2.7 Urine Color Urine Appearance Urine pH Ur Specific Gravit y Urine Protein Urine Glucose (UA) Urine Ketones Urine Blood Urine Nitrate Urine Bilirubin Urine Urobilinogen Ur Leukocyte Luz ase Vitals: Last Vital Signs Temp 97.9 F 09/06/20 08:00 Pulse 80 09/06/20 08:00 Resp 18 09/06/20 08:00 BP 136/79 09/06/20 08:00 Pulse Ox 92 09/06/20 08:00 Discharge Plan Discharge Patient Disposition: Home Condition: Stable Prescriptions: New Ultram 50 mg tablet 50 mg PO Q12H PRN (Reason: pain) Qty: 10 RF: 0 Continued Riccardo 128 5 % Drops 1 drp OPHTHALMIC (EYE) TID RF: 0 rosuvastatin 10 mg tablet See Rx Instructions .ROUTE .COMPLEX RF: 0 coenzyme Q10 200 mg Capsule 200 mg PO DAILY@0900 RF: 0 Discontinued atenolol-chlorthalidone 100-25 mg tablet 1 tab PO DAILY@09 RF: 0 losartan 100 mg tablet 100 mg PO DAILY@ RF: 0 Discharge Orders: Discharge Order (Routine); Ordered 09/06/20 Ordered By: Terry Aviles Referrals: Demarcus Austin MD [Primary Care Provider] - 09/13/20 10:15 am (Follow-up Saturday if possible with [facility]) Activity Restrictions/Additional Instructions: Do not take any anti-inflammatories. Encourage fluids. Hold your blood pressure medicine, until reevaluated by primary care provider. Discharge Attestations Time Spent in Discharge Care*: greater than 30 min Quality Metrics Clinical Quality Measures During this hospital stay, did patient experience: None Coding Level of Care Code Acute Chg FW DC note Diagnoses Acute renal failure N17.9 Acute renal failure type: unspecified Elevated troponin R77.8
--- NOTE | 2020-09-06 10:54 | PC.CHAP ---
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 [] Patient/Family/Request visit [] Outpatient visit [] Follow-up visit [] Physician referral [] Code/Alert [x] Routine visit [] Staff referral [] Actively dying [] Patient sleeping [] Family support [] [] Out of room [] Palliative care [] [] Receiving care in room [] Pre-surgical visit [] Trauma [] Long length of stay [] ICU visit [] Other: Relational/Emotional Strength [] Patient feels connected with others/family/visitors/staff [] Distress [] Loneliness/isolation [] Abandonment Spirituality of Patient [] Person of Angelique [] Attends Cheondoism of their Angelique [] Believes in Prayer [] Reads Bible or Spiritism materials [] There are Spiritual issues to be addressed Transistor Tester Interventions [] Prayer [] Active listening [] Non-anxious presence [] Spiritual/emotional support [] Crisis/trauma care [] Spiritual counseling [] Bereavement support [] Provided bereavement packet [] Provided Bible/devotional materials [] Provided toy/stuffed animal, coloring book to patient or family member [] Provided Communion [] Anointing/[place] [] Salvation [] Completed spiritual assessment [] Other: Impact on Illness or Injury [] Angry [] Fearful [] Anxious [] Often cries [] Exhaustion [] Unable to work [] Unable to attend confucianist [] Unable to walk/stand [] Unable to read [] Unable to drive [] Unable to eat/drink [] Unable to sleep [] Unable to be with family [] Patient intubated [] Other: Summary Time spent with patient
[2020-09-06 12:34] VITALS: BP 136/79; PULSE 80; RESP 18; TEMP 36.6; O2SAT 92
== END 2020-09-06 12:35 | disposition home or self-care (01) ==
LOC: ER 11:17 → MEDSURG 13:01
PROVIDERS: Physician Assistant; Admitting Provider Internal Medicine; Emergency Provider Family Medicine; PCP Family Medicine; Visit Provider Internal Medicine
DX: N17.9 Acute kidney failure, unspecified (principal); R77.8 Other specified abnormalities of plasma proteins; E78.5 Hyperlipidemia, unspecified; I10 Essential (primary) hypertension
CPT/HCPCS: 36415; 36416; 71045; 76770; 80048; 80053; 81003; 82550; 82962; 83605; 83735; 84484; 85025; 93005; 96360; 96361; 96372; 99291; G0378; J1644; J7030

== ENCOUNTER 2020-09-06 22:17 | Emergency (ER) | payer MEDICARE, SELFPAY ==
[2020-09-06 22:28] VITALS: BP 137/84; PULSE 85; RESP 18; TEMP 36.7; O2SAT 95; BMI 40.5
[2020-09-06 23:26] VITALS: BP 174/105; PULSE 81; RESP 16; O2SAT 97
--- NOTE | 2020-09-06 23:37 | ED_ITS ---
HPI - Abdominal Pain General: Chief Complaint: Abdominal Pain Stated Complaint: stomach/abd. pain. lost control of left knee. Time Seen by Provider: 09/06/20 23:15 Source: patient Mode of arrival: ambulatory History of Present Illness: HPI narrative: 75-year-old female complaining of worsening bilateral flank pain radiating around to her abdomen all day today. She was discharged from the hospital this afternoon after being admitted for acute renal failure and generalized weakness. She had been taking quite a bit of OTC Aleve over the past week for her back pain. She had been feeling unwell with sore throat, rash, and general malaise for about 2 weeks, then got her hand Covid shot about a week ago. She has been drinking and tolerating clears since going home this afternoon. No fever, no diarrhea or vomiting. No dysuria. No cough or shortness of breath. She has generalized muscle weakness, feels like her legs give out when she tries to walk. MD elicited complaint: abdominal pain and flank pain Associated Symptoms: Reports bloating; Denies chills, constipation, diarrhea, dysuria, fever(s), hematuria, hematemesis and nausea Review of Systems General: Reports: 10 or more systems reviewed and unremarkable except in HPI and below Const: Reports: body aches, change in appetite, fatigue and malaise; Denies: fever(s) or chills Eyes: Denies: change in vision, blurry vision or blind spots ENMT: Reports: throat pain, odynophagia and dry mouth Card: Reports: edema, swelling of feet/ankles and lightheadedness; Denies: chest pain, palpitations or irregular heart rhythm Resp: Denies: dyspnea, productive cough, non-productive cough or wheezing GI: Reports: abdominal pain, early satiety and bloating; Denies: nausea, vomiting, hematemesis, diarrhea or constipation : Reports: flank pain and urinary frequency; Denies: difficulty voiding, dysuria or hematuria Musc: Reports: back pain, extremity swelling, muscle cramps and muscle weakness; Denies: extremity pain Skin/Breast: Reports: rash; Denies: erythema, photosensitivity, skin pain, skin tenderness, skin swelling or sores Neuro: Reports: weakness in extremities and difficulty walking; Denies: headache(s), numbness in extremities or frequent falls Endo: Reports: polyuria and tired all the time; Denies: polydipsia Demarco/Lymph: Denies: easy bruising or easy bleeding All/Imm: Reports: urticaria PFSH ED PFSH: Medical History Hyperlipidemia Hypertension Surgical History H/O right knee surgery History of cataract surgery History of corneal transplant History of shoulder surgery Family History Other Cancer Dementia Hypertension Stroke Social History Smoking and tobacco status: never smoked Alcohol intake: never Physical Exam Const: COMMON NORMALS: patient oriented x3 GENERAL APPEARANCE: cooperative, anxious and ill appearing; not frail appearing NUTRITIONAL APPEARANCE: overweight ORIENTATION/CONSCIOUSNESS: Yes awake, Yes oriented to person, Yes oriented to place and Yes oriented to time HENMT: COMMON NORMALS: normocephalic and atraumatic HEAD & SCALP: normocephalic and atraumatic FACE & SINUS: normal facial exam and face symmetric MOUTH: Normal oral and palatal mucosa present, moist mucous membranes abnormal Details: parched, Abnormal oral and palatal mucosa present erythematous and tongue abnormal edematous and fissured Eye: COMMON NORMALS: Equal, round and reactive pupils present and conjunctivae normal PERIORBITAL: periorbital findings normal EYELID: eyelids normal and eyelid abnormality CONJUNCTIVA: Yes conjunctivae normal SCLERA: sclerae normal CORNEA: Yes corneas normal PUPIL: Yes Equal, round and reactive pupils present Neck/C-Spine: COMMON NORMALS: full ROM, no lymphadenopathy, supple and no JVD Chest: COMMONS NORMALS: normal inspection of the chest and normal palpation of entire chest wall Resp: COMMON NORMALS: normal respiratory effort, No retractions and No use of accessory muscles EFFORT & INSPECTION: Yes able to speak in complete sentences, Yes symmetric chest movement, No tachypneic and No respiratory distress Cardio: COMMON NORMALS: no JVD, regular rate, regular rhythm, S1 normal heart sound present and S2 normal heart sound present RATE: regular rate RHYTHM: regular rhythm HEART SOUNDS: S1 normal heart sound present and S2 normal heart sound present GI: COMMON NORMALS: Soft to palpation INSPECTION: No Anasarca, Yes abdominal distension and Yes central obesity AUSCULTATION: Yes normoactive bowel sounds PALPATION: Yes Soft to palpation, Yes Tenderness to palpation present (GI) (Mild diffuse), No Guarding due to palpation present (GI), No Rigid due to palpation, No Palpable mass present and No Pulsatile mass present Extremity: OTHER: 2+ pitting edema bilateral lower extremities to the knee Neuro: COMMON NORMALS: patient oriented x3 SENSORIUM/ORIENTATION: Yes oriented to person, Yes oriented to place and Yes oriented to time SPEECH: speech normal MOTOR EXAM: No Normal motor muscle tone present throughout, No Abnormal motor strength present, No Tremors during motor activity present and No Asterixis during motor activity present Skin: COMMON NORMALS: no rashes or lesions noted GENERAL SKIN EXAM: no rashes or lesions noted, dry skin and no jaundice Course Vital Signs: Vital signs: Vital Signs Temperature 98.1 F 09/06/20 22:28 Pulse Rate 72 09/07/20 02:49 Respiratory Rate 18 09/07/20 02:49 Blood Pressure 132/86 09/07/20 02:49 Pulse Oximetry 99 09/07/20 02:49 MDM - Abdominal Pain MDM Narrative: Medical decision making narrative: 75-year-old female with episode of severe flank and abdominal pain to be discharged from hospital today. Kidney function has continued to improve, creatinine now 1.2. No UTI. CT shows no acute process, but does look like there is a 3.3 x 4.3 mm stone at the left UPJ. She also is having symptoms of GERD. Treated with analgesics, will prescribe [place], Levsin, Flomax. Advised to avoid NSAIDs because of her recent YARED. I will refer her to urology, and she can follow-up also with her PCP in the next 2 to 3 days. Strict instructions to return immediately to the ER if she develops fever, worsening pain, she cannot keep down liquids. Differential Diagnosis: Differential diagnosis abdominal pain: Likely abdominal pain, calculus of kidney, constipation, diverticulitis and pancreatitis Medical Records: Attestation: I reviewed the patient's medical records. Lab Data: Attestation: I reviewed the patient's lab results. Labs: Lab Results 09/06/20 09/06/20 09/06/20 Range/Units 23:30 23:30 23:30 WBC 8.9 (4.0-10.0) 10^3/ uL RBC 4.08 L (4.1-5.3) 10^6/u L Hgb 10.9 L (11.5-15.3) g/dL Hct 36.2 L (37.0-47.0) % MCV 88.7 (81-99) fL MCH 26.7 L (28.0-34.0) pg MCHC 30.1 (30.0-36.0) g/dL RDW 15.9 H (12.1-15.1) % Plt Count 193 (130-400) 10^3/c mm MPV 9.9 (7.4-10.4) fL Gran % 56.0 (42.2-75.2) % Lymph % (Auto) Not Reportable Barber % (Auto) Not Reportable Lymph # (Auto) Not Reportable Barber # (Auto) Not Reportable Total Counted 100 (0-100) Atypical Lymphs % 0.0 (0-5) % Absolute Neutrophi ls 6.3 (1.4-6.5) 10^3/c mm Segmented Neutroph ils 69 % Abs Segm Neuts (Ma n) 6.1 (1.6-7.1) 10/cmm Band Neutrophils 2.0 % Abs Band Neuts (Ma n) 0.2 (0.0-1.2) 10^3/c mm Absolute Lymphocyt es 2.1 (1.2-3.4) 10^3/c mm Lymphocytes (Manua l) 24 % Monocytes (Manual) 2.0 % Absolute Monocytes 0.2 (0.1-0.6) 10^3/c mm Eosinophils (Manua l) 3 % Absolute Eosinophi ls 0.2 (0.0-0.7) 10^3/c mm Basophils (Manual) 0.0 % Absolute Basophils 0.0 (0.0-0.2) 10^3/c mm Metamyelocytes 0.0 % Myelocytes 0.0 % Promyelocytes 0.0 % Nucleated RBCs 0.0 (0-1) /100WBC Blast Cells 0 (0-0) % Platelet Estimate Normal (Normal) Sodium 139 (136-145) mmol/L Potassium 4.1 (3.5-5.1) mmol/L Chloride 107 (98-107) mmol/L Carbon Dioxide 21 L (22-29) mmol/L Anion Gap 15.1 (5-19) BUN 41 H (8-23) mg/dL Creatinine 1.2 H (0.5-0.9) mg/dL GFR Calculation Not Reportable Glucose 111 (65-115) mg/dL Calculated Osmolal ity 299 H (285-295) mOsm/k g Lactic Acid 1.1 (0.5-2.2) mmol/L Calcium 8.0 L (8.5-10.5) mg/dL Magnesium 2.3 (1.7-2.3) mg/dL Total Bilirubin 0.4 (0.15-1.2) mg/dL AST 23 (0-32) U/L ALT 17 (0-33) U/L Alkaline Phosphata se 65 (35-105) IU/L C-Reactive Protein 132.6 H (0.0-4.9) mg/L Total Protein 5.7 L (6.6-8.7) g/dL Albumin 3.1 L (3.5-5.2) g/dL Globulin 2.6 (1.3-4.6) g/dL Lipase 15 (13-60) U/L Urine Color (Yellow) Urine Appearance (CLEAR) Urine pH (5-7) Ur Specific Gravit y (1.005-1.030) Urine Protein (Negative) Urine Glucose (UA) (Normal) Urine Ketones (Negative) Urine Blood (Negative) Urine Nitrate (Negative) Urine Bilirubin (Negative) Urine Urobilinogen (Negative) mg/dL Ur Leukocyte Luz ase (Negative) Urine RBC (0-2) /hpf Urine WBC (0-5) /hpf Ur Squamous Epith Cells (0-5) /hpf Ur Transition Epit h Cell /hpf Amorphous Sediment Urine Bacteria (NONE) /hpf 09/07/20 Range/Units 00:09 WBC (4.0-10.0) 10^3/ uL RBC (4.1-5.3) 10^6/u L Hgb (11.5-15.3) g/dL Hct (37.0-47.0) % MCV (81-99) fL MCH (28.0-34.0) pg MCHC (30.0-36.0) g/dL RDW (12.1-15.1) % Plt Count (130-400) 10^3/c mm MPV (7.4-10.4) fL Gran % (42.2-75.2) % Lymph % (Auto) Barber % (Auto) Lymph # (Auto) Barber # (Auto) Total Counted (0-100) Atypical Lymphs % (0-5) % Absolute Neutrophi ls (1.4-6.5) 10^3/c mm Segmented Neutroph ils % Abs Segm Neuts (Ma n) (1.6-7.1) 10/cmm Band Neutrophils % Abs Band Neuts (Ma n) (0.0-1.2) 10^3/c mm Absolute Lymphocyt es (1.2-3.4) 10^3/c mm Lymphocytes (Manua l) % Monocytes (Manual) % Absolute Monocytes (0.1-0.6) 10^3/c mm Eosinophils (Manua l) % Absolute Eosinophi ls (0.0-0.7) 10^3/c mm Basophils (Manual) % Absolute Basophils (0.0-0.2) 10^3/c mm Metamyelocytes % Myelocytes % Promyelocytes % Nucleated RBCs (0-1) /100WBC Blast Cells (0-0) % Platelet Estimate (Normal) Sodium (136-145) mmol/L Potassium (3.5-5.1) mmol/L Chloride (98-107) mmol/L Carbon Dioxide (22-29) mmol/L Anion Gap (5-19) BUN (8-23) mg/dL Creatinine (0.5-0.9) mg/dL GFR Calculation Glucose (65-115) mg/dL Calculated Osmolal ity (285-295) mOsm/k g Lactic Acid (0.5-2.2) mmol/L Calcium (8.5-10.5) mg/dL Magnesium (1.7-2.3) mg/dL Total Bilirubin (0.15-1.2) mg/dL AST (0-32) U/L ALT (0-33) U/L Alkaline Phosphata se (35-105) IU/L C-Reactive Protein (0.0-4.9) mg/L Total Protein (6.6-8.7) g/dL Albumin (3.5-5.2) g/dL Globulin (1.3-4.6) g/dL Lipase (13-60) U/L Urine Color Yellow (Yellow) Urine Appearance Clear (CLEAR) Urine pH 5 (5-7) Ur Specific Gravit y 1.015 (1.005-1.030) Urine Protein Neg (Negative) Urine Glucose (UA) Norm (Normal) Urine Ketones Negative (Negative) Urine Blood Neg (Negative) Urine Nitrate Negative (Negative) Urine Bilirubin Neg (Negative) Urine Urobilinogen Norm (Negative) mg/dL Ur Leukocyte Luz ase Trace H (Negative) Urine RBC 0-4 H (0-2) /hpf Urine WBC 5-10 H (0-5) /hpf Ur Squamous Epith Cells 10-15 H (0-5) /hpf Ur Transition Epit h Cell None /hpf Amorphous Sediment Not Reportable Urine Bacteria None (NONE) /hpf Discharge Plan Discharge Patient Disposition: Home Clinical Impression: Calculus of kidney Abdominal pain Qualifiers: Abdominal location: generalized Qualified Code(s): R10.84 - Generalized abdominal pain Condition: Stable Prescriptions: New Levsin/SL 0.125 mg tablet, sublingual 0.125 mg PO Q6H PRN (Reason: bladder spasm) Qty: 30 RF: 0 Flomax 0.4 mg capsule 0.4 mg PO DAILY Qty: 20 RF: 0 hydrocodone-acetaminophen 7.5-325 mg tablet 1 tab PO Q6H PRN (Reason: pain) 5 Days Qty: 20 RF: 0 pantoprazole 40 mg tablet,delayed release (DR/EC) 40 mg PO DAILY Qty: 30 RF: 0 No Action Riccardo 128 5 % Drops 1 drp OPHTHALMIC (EYE) TID RF: 0 rosuvastatin 10 mg tablet See Rx Instructions .ROUTE .COMPLEX RF: 0 coenzyme Q10 200 mg Capsule 200 mg PO DAILY@0900 RF: 0 Ultram 50 mg tablet 50 mg PO Q12H PRN (Reason: pain) Qty: 10 RF: 0 Discharge Orders: Discharge ED (Routine); Ordered 09/07/20 Ordered By: oCnstance Hawkins Referrals: Dale Husain MD [Physician] - 4-7 days (ER followup, L nephrolithiasis) Demarcus Austin MD [Primary Care Provider] - 1-3 days Discharge Diet: Advance as tolerated Discharge Activity: Increase activity as tolerated Patient Instructions: Abdominal Pain (ED), Opioid Safety Activity Restrictions/Additional Instructions: Drink plenty of fluids, rest, call to schedule follow-up appointment with Dr. Austin in the next 2 to 3 days. Avoid taking [id number] Aleve/naproxen/Motrin/Advil/ibuprofen; you can take Tylenol if needed. Return immediately to the ER if you develop fever, worsening pain, nausea, vomiting or any other concerning changes. Coding Level of Care Code ED [facility] Exam Comprehensive
[2020-09-06 23:44] LABS: Hematocrit 36.2 % (37.0-47.0); Hemoglobin 10.9 g/dL (11.5-15.3); Mean Corpuscular HGB Conc 30.1 g/dL (30.0-36.0); Mean Corpuscular Hemoglobin 26.7 pg (28.0-34.0); Mean Corpuscular Volume 88.7 fL (81-99); Mean Platelet Volume 9.9 fL (7.4-10.4); Platelet Count 193 10^3/cmm (130-400); Red Blood Count 4.08 10^6/uL (4.1-5.3); Red Cell Distribution Width 15.9 % (12.1-15.1); White Blood Count 8.9 10^3/uL (4.0-10.0)
[2020-09-07 00:03] LABS: Slide Review Slide Review Perform
[2020-09-07 00:05] LABS: Total Cells Counted 100 (0-100)
[2020-09-07 00:06] LABS: Absolute Eosinophils 0.2 10^3/cmm (0.0-0.7); Absolute Neutrophil 6.3 10^3/cmm (1.4-6.5); Absolute Segmented Neutrophil 6.1 10/cmm (1.6-7.1); Band Neutrophils Absolute 0.2 10^3/cmm (0.0-1.2); Blastocytes 0 % (0-0); Eosinophils 3 %; Lactic Sepsis W/Reflex 1.1 mmol/L (0.5-2.2); Lymphocytes 24 %; Lymphocytes Absolute 2.1 10^3/cmm (1.2-3.4); Monocytes Absolute 0.2 10^3/cmm (0.1-0.6); Platelet Estimate Normal (Normal); Segmented Neutrophils 69 %
[2020-09-07 00:14] VITALS: BP 154/120; PULSE 85; RESP 18; O2SAT 98
[2020-09-07 00:42] LABS: Specific Gravity, Urine 1.015 (1.005-1.030); Urine Appearance Clear (CLEAR); Urine Color Yellow (Yellow); pH Urine 5 (5-7)
[2020-09-07 00:43] LABS: Add Urine Culture? No; Add Urine Microscopic? YES; Bilirubin Urine Neg (Negative); Blood Urine Neg (Negative); Glucose Urine UA Norm (Normal); Ketones Urine Negative (Negative); Leukocyte Esterase Urine Trace (Negative); Nitrate Urine Negative (Negative); Protein Urine Neg (Negative); RBC Urine 0-4 /hpf (0-2); Urobilinogen Urine Norm (Negative)
[2020-09-07 00:50] LABS: Alanine Aminotransferase 17 U/L (0-33); Albumin Level 3.1 g/dL (3.5-5.2); Alkaline Phosphatase 65 IU/L (35-105); Anion Gap 15.1 (5-19); Aspartate Amino Transferase 23 U/L (0-32); Blood Urea Nitrogen 41 mg/dL (8-23); C Reactive Protein 132.6 mg/L (0.0-4.9); Carbon Dioxide 21 mmol/L (22-29); Chloride 107 mmol/L (98-107); Globulin 2.6 g/dL (1.3-4.6); Glucose 111 mg/dL (65-115); Lipase 15 U/L (13-60); Magnesium 2.3 mg/dL (1.7-2.3); Osmolality Calculated 299 mOsm/kg (285-295); Potassium 4.1 mmol/L (3.5-5.1); Sodium 139 mmol/L (136-145); Total Bilirubin 0.4 mg/dL (0.15-1.2); Total Protein 5.7 g/dL (6.6-8.7)
--- NOTE | 2020-09-07 00:57 | CTR_ITS ---
PROCEDURE INFORMATION: Exam: CT Abdomen And Pelvis With Contrast Exam date and time: 09/07/2020 12:59 AM Age: 75 years old Clinical indication: Abdominal pain; Generalized; Patient HX: Diffuse abd and back pain. ; Additional info: Abdominal pain, eleazar, b/l flank pain TECHNIQUE: Imaging protocol: Computed tomography of the abdomen and pelvis with contrast. Radiation optimization: All CT scans at this facility use at least one of these dose optimization techniques: automated exposure control; mA and/or kV adjustment per patient size (includes targeted exams where dose is matched to clinical indication); or iterative reconstruction. Contrast material: VISI 320; Contrast volume: 95 ml; Contrast route: INTRAVENOUS (IV); COMPARISON: US renal BI* [id number] 09/05/2020 12:01 PM RADIATION DOSE METRICS: Total DLP (mGy-cm): 1769.03 FINDINGS: Lungs: Single calcified pulmonary granuloma is present, consistent with prior granulomatous disease. Mediastinal space: There is a small hiatal hernia. Liver: Normal. No mass. Gallbladder and bile ducts: No wall thickening, pericholecystic fluid or stones. Pancreas: Normal. No ductal dilation. Spleen: There are multiple calcified splenic granulomata . Adrenal glands: Normal. No mass. Kidneys and ureters: There are multiple left renal cysts, the largest is 2.9 cm. Stomach and bowel: Diverticulosis without diverticulitis. Appendix: No evidence of appendicitis. Intraperitoneal space: Unremarkable. No free air. No significant fluid collection. Vasculature: Unremarkable. No abdominal aortic aneurysm. Lymph nodes: Unremarkable. No enlarged lymph nodes. Urinary bladder: Unremarkable as visualized. Reproductive: Unremarkable as visualized. Bones/joints: Unremarkable. No acute fracture. Soft tissues: Unremarkable. CT/CT abdomen pelvis w con* [id number] IMPRESSION: 1. Diverticulosis without diverticulitis. 2. Multiple left renal cysts, the largest is 2.9 cm. 3. Small hiatal hernia . COMMENTS: Consistent with the [employer]'s Incidental Findings Committee white paper (J Am Gt Radiol 2018): Any incidental renal lesion less than 1 cm or classified as too small to characterize, or any incidental cystic renal lesion characterized as simple-appearing, is likely benign. No follow-up imaging is recommended for these lesions per consensus recommendations based on imaging criteria. Radiation Dose CTDIVOL = (mGy): DLP = 1769.03 (mGy-cm)
[2020-09-07] MEDS: iodixanol 320 mg/mL 100mL Btl IV (01:11)
[2020-09-07 01:17] VITALS: BP 168/101; PULSE 99; RESP 22; O2SAT 99
[2020-09-07] MEDS: fentaNYL 50 mcg/mL INJ 2mL 100 MCG IVP (01:25)
--- NOTE | 2020-09-07 01:35 | PC.NURSE ---
Placed pt on 2L oxygen via nasal cannula after Fentanyl administration.
[2020-09-07] MEDS: pantoprazole DR 40 mg Tablet PO (02:16)
[2020-09-07 02:18] VITALS: BP 158/73; PULSE 88; RESP 20; O2SAT 96
[2020-09-07] MEDS: ketorolac 30 mg/mL INJ 15 MG IVP (02:19)
[2020-09-07] MEDS: HYDROcodone-acetaminophen 7.5-325 mg Tablet 1 TAB PO (02:40)
[2020-09-07] MEDS: hyoscyamine ODT 0.125 mg Tablet 0.25 MG PO (02:41)
[2020-09-07 02:49] VITALS: BP 132/86; PULSE 72; RESP 18; O2SAT 99
== END 2020-09-07 02:50 | disposition home or self-care (01) ==
PROVIDERS: Emergency Provider Family Medicine; PCP Family Medicine
DX: N20.0 Calculus of kidney (principal); R10.84 Generalized abdominal pain; E78.5 Hyperlipidemia, unspecified; I10 Essential (primary) hypertension; N17.9 Acute kidney failure, unspecified; R77.8 Other specified abnormalities of plasma proteins
CPT/HCPCS: 36415; 72148; 74177; 80048; 80053; 81001; 83605; 83690; 83735; 85007; 85025; 86140; 96372; 96374; 96375; 99284; G0378; J1644; J1885; J3010; J7030; Q9967

== ENCOUNTER 2020-09-07 13:41 | Outpatient (CLI) | payer MEDICARE, SELFPAY ==
--- NOTE | 2020-09-07 13:44 | MR_ITS ---
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 TECHNIQUE: Sagittal and axial multisequence imaging is submitted. Moderate increase in thoracic kyphosis. T7 and L5 hemangiomas. No fracture. Slight increase in the lumbar lordosis. Moderate disc space narrowing at L5-S1. Otherwise mild disc d esiccation and narrowing throughout the lumbar spine. 2 mm retrolisthesis of L1 and L2 and L3. No mar row edema or fracture. Conus terminates normally at L1. L1-L2: Mild disc bulging. Asymmetric facet joint arthritis, greatest on the LEFT causing mild LEFT fo raminal narrowing. L2-L3: Diffuse annular disc bulging and mild osteophytic ridging with asymmetric ligamentum flavum di sease and facet arthritis, greatest on the LEFT. Facet joint arthritis on the LEFT encroaches upon th e LEFT lateral thecal sac with no high-grade stenosis. L3-L4: Mild annular disc bulging and facet arthritis. No significant stenosis. L4-L5: Mild annular disc bulging and mild facet joint arthritis. Mild bilateral foraminal narrowing d ue to osteophyte and disc and facet disease. L5-S1: Mild annular disc bulging and osteophytic ridging. Central to RIGHT paracentral disc osteophyt e protrusion. Small associated annular fissure. There is a bony bridge extending into the RIGHT des en from the inferior endplate of L5. May be encroaching upon the RIGHT S1 nerve root. LEFT renal cyst 2.7 cm. MR/MR lumbar spine wo con* [id number] IMPRESSION: 1. 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 2. Mild bilateral foraminal stenosis at L4-5 and on the LEFT at L1-2. 3. No significant central stenosis.
== END 2020-09-07 13:42 | disposition home or self-care (01) ==
PROVIDERS: PCP Family Medicine; Visit Provider Family Medicine
DX: M54.16 Radiculopathy, lumbar region (principal); M48.061 Spinal stenosis, lumbar region without neurogenic claudication; M25.78 Osteophyte, vertebrae
CPT/HCPCS: 72148

== ENCOUNTER 2020-10-27 09:19 | Outpatient (RCR) | payer MEDICARE, SELFPAY | END 2020-11-14 23:59 | disposition home or self-care (01) | LOC: SPO 09:19 | PROVIDERS: PCP Family Medicine; Referring Provider Physical Medicine & Rehabilitation; Visit Provider Physical Medicine & Rehabilitation | DX: A49.1 Streptococcal infection, unspecified site (principal) | CPT/HCPCS: 97110; 97116; 97161; 97165 ==

== ENCOUNTER → 2020-10-31 14:12 | Outpatient (BNVA) | payer MEDICARE, SELFPAY | PROVIDERS: PCP Family Medicine; Referring Provider Family Medicine; Visit Provider Nurse Practitioner Family | DX: N17.9 Acute kidney failure, unspecified (principal); N39.41 Urge incontinence | CPT/HCPCS: 81003 ==

== ENCOUNTER 2020-11-15 06:00 | Outpatient (RCR) | payer MEDICARE, SELFPAY | END 2020-12-14 23:59 | disposition home or self-care (01) | LOC: SPO 06:00 | PROVIDERS: PCP Family Medicine; Referring Provider Physical Medicine & Rehabilitation; Visit Provider Physical Medicine & Rehabilitation | DX: G61.0 Guillain-Barre syndrome (principal) | CPT/HCPCS: 97110; 97116; 97530 ==

== ENCOUNTER 2020-11-23 12:00 | Outpatient (CLI) | payer MEDICARE, SELFPAY | END 2020-11-23 12:01 | disposition home or self-care (01) | LOC: SLEEP 11-24 16:10 | PROVIDERS: PCP Family Medicine; Visit Provider Family Medicine | DX: G47.10 Hypersomnia, unspecified (principal) | CPT/HCPCS: G0399 ==

== ENCOUNTER 2020-12-15 06:00 | Outpatient (RCR) | payer MEDICARE, SELFPAY | END 2021-01-14 23:59 | disposition home or self-care (01) | LOC: SPO 06:00 | PROVIDERS: PCP Family Medicine; Referring Provider Physical Medicine & Rehabilitation; Visit Provider Physical Medicine & Rehabilitation | DX: G61.0 Guillain-Barre syndrome (principal) | CPT/HCPCS: 97110; 97112; 97530 ==

== ENCOUNTER 2021-01-15 06:00 | Outpatient (RCR) | payer MEDICARE, SELFPAY | END 2021-02-14 23:59 | disposition home or self-care (01) | LOC: SPO 06:00 | PROVIDERS: PCP Family Medicine; Referring Provider Physical Medicine & Rehabilitation; Visit Provider Physical Medicine & Rehabilitation | DX: G65.0 Sequelae of Guillain-Barre syndrome (principal) | CPT/HCPCS: 97110 ==

== ENCOUNTER 2021-09-25 10:51 | Outpatient (CLI) | payer MEDICARE, SELFPAY ==
--- NOTE | 2021-09-25 11:01 | MM_ITS ---
WS: [id number] BILATERAL 3D TOMOSYNTHESIS DIGITAL SCREENING MAMMOGRAPHY WITH CAD CLINICAL INFORMATION: SCREENING HISTORY: Screening mammogram. No current complaints. COMPARISON: June 15, 2020 TECHNIQUE: Bilateral CC and MLO views. FINDINGS: Scattered fibroglandular densities bilaterally. Vascular calcification RIGHT breast. No suspicious fo jamin mass, asymmetry, calcifications, or architectural distortion. No evidence of malignancy. MM/[place] [id number] IMPRESSION: BI-RADS: 2-Benign FOLLOW UP: 1 Year Follow-up Recommend return to annual screening mammography.
== END 2021-09-25 10:52 | disposition home or self-care (01) ==
LOC: RADSHAW 10:53
PROVIDERS: PCP Family Medicine; Visit Provider Family Medicine
DX: Z12.31 Encounter for screening mammogram for malignant neoplasm of breast (principal)
CPT/HCPCS: 77063; 77067

== ENCOUNTER 2022-08-15 13:49 | Outpatient (CLI) | payer MEDICARE, SELFPAY ==
--- NOTE | 2022-08-15 14:04 | XR_ITS ---
WS: [id number] DEXA (DUAL ENERGY X-RAY ABSORPTIOMETRY) Bone mineral density was performed using a [employer] machine. HISTORY: POSTMENOPAUSAL COMPARISON: 08/12/2020 Lumbar spine BMD (L1-L4): 1.140 g/cm2 T score: -0.3 Z score: 0.3 Total hip BMD: Left: 1.035 g/cm2. T score: 0.2 Z score: 1.1 Right: 0.974 g/cm2. T score: -0.3 Z score: 0.6 10 year probability of a major osteoporotic fracture is 13.6%. Compared to the prior study from 08/12/2020. Lumbar spine bone mineral density has decreased by 1.1%. Bilateral hips bone mineral density has increased by 0.1%. XR/XR DEXA axial skeleton* [id number] IMPRESSION: NORMAL BONE MINERAL DENSITY based upon the WHO classification for females. No s ignificant change in bone mineral density since the most recent study.
== END 2022-08-15 13:50 | disposition home or self-care (01) ==
PROVIDERS: PCP Family Medicine; Visit Provider Family Medicine
DX: Z78.0 Asymptomatic menopausal state (principal)
CPT/HCPCS: 77080

== ENCOUNTER 2022-09-27 11:48 | Outpatient (CLI) | payer MEDICARE, SELFPAY ==
--- NOTE | 2022-09-27 11:57 | MM_ITS ---
WS: [id number] BILATERAL SCREENING DIGITAL TOMOSYNTHESIS MAMMOGRAM WITH CAD HISTORY: SCREENING COMPARISON: 09/25/2021, 06/15/2020 Bilateral CC and MLO views with tomosynthesis and synthetic mammography submitted. Computer aided det ection analyzed. Breast composition: There are scattered areas of fibroglandular density. No suspicious masses, microc alcifications or architectural distortion. MM/[place] [id number] IMPRESSION: BI-RADS: 1-Negative FOLLOW UP: 1 Year Follow-up
== END 2022-09-27 11:49 | disposition home or self-care (01) ==
PROVIDERS: PCP Family Medicine; Visit Provider Family Medicine
DX: Z12.31 Encounter for screening mammogram for malignant neoplasm of breast (principal)
CPT/HCPCS: 77063; 77067

== ENCOUNTER 2023-09-30 10:49 | Outpatient (CLI) | payer MEDICARE, SELFPAY ==
--- NOTE | 2023-09-30 11:17 | MM_ITS ---
WS: [id number] VIEWS: MLO and CC views both breasts. 3D digital tomosynthesis is also included in this exam. Comparison made with prior exam of 09/28/2010, 10/05/2011, 11/03/2012, 01/21/2014, 01/31/2015, 02/03/2016, , 03/14/2018, 04/30/2019, 06/15/2020, 09/25/2021, 09/27/2022.. Findings: There was no sign of mass, architectural distortion or suspicious calcification in either breast. The re are scattered areas of fibroglandular density. Impression: MM/[place] [id number] BI-RADS: 2-Benign finding. FOLLOW-UP: 1 Year Follow-up This mammogram was also analyzed by the Computer Aided Detection System [employer].
== END 2023-09-30 10:50 | disposition home or self-care (01) ==
LOC: RAD 10:50
PROVIDERS: PCP Family Medicine; Visit Provider Family Medicine
DX: Z12.31 Encounter for screening mammogram for malignant neoplasm of breast (principal)
CPT/HCPCS: 77063; 77067

== ENCOUNTER 2024-09-30 12:18 | Outpatient (CLI) | payer MEDICARE, SELFPAY ==
--- NOTE | 2024-09-30 12:22 | XR_ITS ---
WS: [id number] DEXA (DUAL ENERGY X-RAY ABSORPTIOMETRY) Bone mineral density was performed using a [employer] machine. HISTORY: POSTMENOPAUSAL COMPARISON: 08/15/2022 Lumbar spine BMD (L1-L4): 1.136 g/cm2 T score: -0.4 Z score: 0.3 Total hip BMD: Left: 0.979 g/cm2. T score: -0.2 Z score: 0.8 Right: 0.978 g/cm2. T score: -0.2 Z score: 0.8 10 year probability of a major osteoporotic fracture is 16.1%. Compared to the prior study from 08/15/2022. Lumbar spine bone mineral density has decreased by 0.4%. Bilateral hips bone mineral density has decreased by 2.5%. XR/XR DEXA axial skeleton* [id number] IMPRESSION: NORMAL BONE MINERAL DENSITY based upon the WHO classification for females. No significant decrease of bone mineral density in the lumbar spine. Significan t decrease in bone mineral density within the hips.
--- NOTE | 2024-09-30 12:22 | MM_ITS ---
WS: [id number] Bilateral screening 3D tomosynthesis digital mammogram, 09/30/2024 1:00 PM Clinical Data: PT HAVING DEXA TOO Comparison: 09/30/2023, 09/27/2022, 09/25/2021, 06/15/2020, 04/30/2019, 03/14/2018, 03/08/2017. Findings: No spiculated masses or clustered calcifications are seen. There are no secondary signs of carcinoma. MM/MM scr BI tomosynthesis [id number] Impression: Negative bilateral mammogram unchanged. Recommend annual screening mammograms. BIRADS: 1 - Negative. FOLLOW UP: 1 Year Follow-up DENSITY: There are scattered areas of fibroglandular density. The CAD cash checker was used
== END 2024-09-30 12:19 | disposition home or self-care (01) ==
PROVIDERS: PCP Family Medicine; Visit Provider Family Medicine
DX: Z12.31 Encounter for screening mammogram for malignant neoplasm of breast (principal); Z78.0 Asymptomatic menopausal state; R92.323 Mammographic fibroglandular density, bilateral breasts
CPT/HCPCS: 77063; 77067; 77080